=== PATIENT | female | born 1965 | race Two or more races ===

== ENCOUNTER → 2018-04-04 | Outpatient (CLI) | payer OTHER ==
[~2018-04-04] MED LIST: CLARINEX5 MG/TAB
== END | disposition home or self-care (01) ==
LOC: MAMO-SONO 11:15 → SONOGRAMA 11:19
DX: M75.51 Bursitis of right shoulder (principal)

== ENCOUNTER 2018-05-10 10:00 | Day surgery (SDC) | payer OTHER ==
[~2018-05-10 10:00] MED LIST changes: +FENOFIBRATE134 MG PO; +PAXIL20 MG PO; +SYNTHROID88 MCG PO; +TAMOXIFEN CITRA20 MG PO
[2018-05-10] MEDS ORDERED: NAPR500T14 PO (16:08)
== END 2018-05-10 19:40 | disposition home or self-care (01) ==
LOC: CIR.AMB 10:00
DX: N93.8 Other specified abnormal uterine and vaginal bleeding (principal)

== ENCOUNTER → 2018-12-27 | Day surgery (SDC) | payer OTHER ==
[~2018-12-27] MED LIST changes: +NAPR500T14 PO
== END | disposition home or self-care (01) ==
LOC: ADM 12-20 12:15 → CIR.AMB 07:00
DX: N84.0 Polyp of corpus uteri (principal)

== ENCOUNTER 2020-03-12 07:30 | Day surgery (SDC) | payer OTHER ==
[~2020-03-12 07:30] MED LIST changes: +OMEGA PO; +RISEDRONATE SO150 MG PO
== END 2020-03-12 17:25 | disposition home or self-care (01) ==
LOC: CIR.AMB 07:30 → ADM 11:45 → CIR.AMB 17:25
PROVIDERS: ATTEND Obstetrics & Gynecology
DX: N84.0 Polyp of corpus uteri (principal); Z85.3 Personal history of malignant neoplasm of breast; N72 Inflammatory disease of cervix uteri

== ENCOUNTER 2020-10-08 05:30 | Day surgery (SDC) | payer OTHER | END 2020-10-08 13:45 | disposition home or self-care (01) | LOC: CIR.AMB 05:30 | PROVIDERS: ATTEND Obstetrics & Gynecology | DX: N88.2 Stricture and stenosis of cervix uteri (principal); Z20.822 Contact with and (suspected) exposure to COVID-19 ==

== ENCOUNTER 2021-05-06 07:11 | Day surgery (SDC) | payer OTHER ==
[~2021-05-06 07:11] MED LIST changes: +OMEGA 3 PO; +SYNTHROID100 MCG PO; +VITAMIN D3 PO
== END 2021-05-06 16:05 | disposition home or self-care (01) ==
LOC: CIR.AMB 07:11
PROVIDERS: ATTEND Obstetrics & Gynecology
DX: N72 Inflammatory disease of cervix uteri (principal)

== ENCOUNTER 2023-09-05 17:58 | Emergency (ER) | payer OTHER ==
[~2023-09-05] VITALS: Ht 167.6 cm; Wt 65.8 kg
[~2023-09-05 17:58] MED LIST changes: +RISEDRONATE PO; +VITAMIN C100 MG PO; +VITAMIN E PO
[2023-09-05] MEDS ORDERED: 0.9 % SODIUM CHLORIDE 1,000 ML IV STA (18:34)
[2023-09-05] MEDS ORDERED: MEPERIDINE HCL/PF 25 MG/ML VIAL IV ONE (18:45)
[2023-09-05 18:52] LABS: HEMATOCRIT 35.9 % (36.0-45.00); HEMOGLOBIN 12.4 g/dL (12.0-15.00); MEAN CELL VOLUME 94.1 fL (80.00-100.00); MEAN CORPUSCULAR HEMOGLOBIN 32.5 pg (27.00-32.0); MEAN CORPUSCULAR HGB CONC 34.6 g/dl (32.0-36.0); PLATELET COUNT 214 K/uL (150-450); RED BLOOD COUNT 3.82 M/uL (4.00-6.00); RED CELL DISTRIBUTION WIDTH 12.4 % (11.5-14.5)
[2023-09-05 18:56] LABS: URINE APPEARANCE Clear; URINE BILIRRUBIN Negative (NEGATIVE); URINE BLOOD Negative; URINE COLOR Yellow; URINE GLUCOSE Negative (NEGATIVE); URINE LEUKOCYTE Moderate; URINE NITRATE Negative; URINE PROTEIN Negative (NEGATIVE)
[2023-09-05 18:57] LABS: URINE BACTERIA 394.2 uL (0.0-1933); URINE EPITHELIAL CELLS 23.1 uL (0.0-38.8); URINE RBC 14.5 uL (0.0-20.8); URINE WBC 96.9 uL (0.0-23.2)
[2023-09-05 19:20] LABS: AMYLASE 54 U/L (25-115); LIPASE 24 U/L (13-75)
== END 2023-09-05 23:18 | disposition home or self-care (01) ==
LOC: ER 17:58
PROVIDERS: Emergency Medicine
DX: R10.9 Unspecified abdominal pain (principal); E03.9 Hypothyroidism, unspecified; Z88.2 Allergy status to sulfonamides; Z91.013 Allergy to seafood

== ENCOUNTER → 2025-01-31 | Emergency (ER) | payer OTHER ==
[~2025-01-31] VITALS: Ht 160 cm; Wt 59.9 kg
[~2025-01-31] MED LIST changes: +ATORVASTATIN CA20 MG PO; +HYDROXYZINE PAM50 MG PO
[2025-01-31 12:11] LABS: URINE APPEARANCE Clear; URINE BILIRRUBIN Negative (NEGATIVE); URINE BLOOD Negative; URINE COLOR Yellow; URINE GLUCOSE Negative (NEGATIVE); URINE KETONE Negative (NEGATIVE); URINE LEUKOCYTE Negative; URINE NITRATE Negative; URINE PROTEIN Negative (NEGATIVE); URINE UROBILINOGEN 0.2 E.U./dl
[2025-01-31 12:12] LABS: URINE BACTERIA 4.8 uL (0.0-1933); URINE EPITHELIAL CELLS 1.9 uL (0.0-38.8); URINE WBC 1.9 uL (0.0-23.2)
[2025-01-31 12:13] LABS: URINE CAST 0.00 uL (0.0-1.40); URINE RBC 1.9 uL (0.0-20.8)
[2025-01-31 12:34] LABS: COVID-19 AG NEGATIVE (NEGATIVE)
[2025-01-31 12:35] LABS: BASO % 0.7 % (0.1-1.2); EOS # 0.07 (0.04-0.54); EOS % 1.3 % (0.7-7.0); LYMPH # 1.38 (1.18-3.74); LYMPH % 25.1 % (19.3-53.1); MEAN PLATELET VOLUME 9.80 fl (9.4-12.4); MONO # 0.37 (0.24-0.82); MONO % 6.7 % (4.7-12.5); NEUT # 3.63 (1.56-6.13); NEUT % 66.0 % (34.0-71.1); RED CELL DISTRIBUTION WIDTH 11.9 % (11.6-14.4)
[2025-01-31 13:03] LABS: ALT/SGPT 35.0 U/L (12-78); AST/SGOT 18.0 U/L (15-37); BILIRUBIN TOTAL 0.44 mg/dL (0.3-1.2); BUN CREA RATIO 25.0 (7.0-25.0); CREATININE SERUM 0.73 mg/dL (0.55-1.02); GFR 81.32; GLOBULINA 3.7 G/DL (2.4-3.5); GLUCOSE FASTING 102.0 mg/dL (65-100); OSMOLALITY SERUM 291.0 MOSM/KG (275-295)
== END | disposition home or self-care (01) ==
LOC: ER 10:32
PROVIDERS: Preventive Medicine Public Health & General Preventive Medicine
DX: C50.919 Malignant neoplasm of unspecified site of unspecified female breast (principal); R53.1 Weakness; R53.83 Other fatigue; E03.8 Other specified hypothyroidism; Z20.822 Contact with and (suspected) exposure to COVID-19; Z88.2 Allergy status to sulfonamides; Z91.013 Allergy to seafood